=== PATIENT | male | born 1960 | race Hispanic/Latino ===

== ENCOUNTER 2018-07-15 02:13 | Emergency (ER) | payer SELFPAY ==
[2018-07-15] MEDS ORDERED: Ondansetron PF 4 MG/2 ML Vial ONE (02:42)
[2018-07-15] MEDS ORDERED: Famotidine In NaCl 20 mg/50 ml Premix Bag ONE (02:43)
[2018-07-15 03:14] LABS: Hemoglobin 15.5 g/dL (14.0-18.0); Mean Corpuscular HGB CONC 33.7 g/dL (32.0-36.0); Mean Corpuscular Hemoglobin 31.2 pg (27.0-31.0); Mean Corpuscular Volume 92.6 fL (78.0-98.0); Mean Platelet Volume 8.2 fL (7.4-10.4); Platelet Count 87 thou/uL (130-400); Red Blood Cell (RBC) Count 4.98 mill/uL (4.70-6.10); White Blood Cell (WBC) Count 11.3 thou/uL (4.8-10.8)
[2018-07-15 03:20] LABS: INR-International Normal Ratio 1.2; PTT 29.3 SEC (22.9-36.1)
[2018-07-15 03:25] LABS: ALT (SGPT) 78 U/L (8-55); AST (SGOT) 53 U/L (5-34); Albumin 3.3 g/dL (3.5-5.0); Alkaline Phosphatase 144 U/L (40-150); Anion Gap 18 mmol/L (10-20); BUN (Urea Nitrogen) 13 mg/dL (8.4-25.7); Bilirubin, Total 1.8 mg/dL (0.2-1.2); Calc. Creatinine Clearance 0 mL/min (70-130); Calcium 8.9 mg/dL (7.8-10.44); Carbon Dioxide 22 mmol/L (22-29); Chloride 97 mmol/L (98-107); Estimated GFR-MDRD 82; Globulin 4.5 g/dL (2.4-3.5); Glucose 421 mg/dL (70-105); Lipase 15 U/L (8-78); Potassium 4.4 mmol/L (3.5-5.1); Protein, Total 7.8 g/dL (6.0-8.3); Sodium 133 mmol/L (136-145)
[2018-07-15 03:31] LABS: #Basophils 0.2 thou/uL (0.0-0.2); #Eosinphils 0.1 thou/uL (0.0-0.7); #Lymphocytes 0.5 thou/uL (1.20-3.40); #Monocytes 0.8 thou/uL (0.11-0.59); #Neutrophils 9.7 thou/uL (1.40-6.50); %Basophils 1.6 % (0.0-1.0); %Eosinophils 0.6 % (0.0-10.0); %Lymphocytes 4.5 % (21.0-51.0); %Monocytes 7.4 % (0.0-10.0); %Neutrophils 85.8 % (42.0-75.0); Platelet Morphology Comment Appears Decreased; RBC Morphology Normal
[2018-07-15 03:33] LABS: Manual Diff?? NO
[2018-07-15 03:34] LABS: MDiff Complete? YES
[2018-07-15] MEDS ORDERED: Mag-Al Plus 1200 MG/1200 MG/120 MG/30 ML UDCUP ONE (03:46)
[2018-07-15] MEDS ORDERED: Lidocaine Viscous Sol 2% 15 ml UD Cup ONE (03:47)
[2018-07-15] MEDS ORDERED: Thiamine HCl 200 MG/2 ML VIAL ONE (03:50)
[2018-07-15 04:11] LABS: Bilirubin Negative (Negative); Blood, Urine Trace (Negative); Clarity Clear (Clear); Glucose, Urine (Dipstick) 500 mg/dL (Negative); Leukocyte Negative (Negative); Nitrite Negative (Negative); Protein, Urine (Dipstick) Negative (Neg-Trace); Specific Gravity, Urine 1.015 (1.005-1.030)
[2018-07-15 04:19] LABS: Bacteria/HPF Rare-Few HPF (None Seen); Squamous Epithelial 0-3 HPF (0-3); WBC/HPF 0-3 HPF (0-3)
== END 2018-07-15 04:25 | disposition home or self-care (01) ==
LOC: BURERS 02:13
DX: K29.20 Alcoholic gastritis without bleeding (principal); R94.5 Abnormal results of liver function studies; F10.10 Alcohol abuse, uncomplicated; E11.9 Type 2 diabetes mellitus without complications; F17.210 Nicotine dependence, cigarettes, uncomplicated
CPT/HCPCS: 80053; 81003; 81015; 82274; 83690; 84484; 85025; 85610; 85730; 96365; 96375; J2405; J3411